=== PATIENT | female | born 1980 | race Caucasian/White ===

== ENCOUNTER 2018-06-09 15:09 | Observation (INO) ==
--- NOTE | 2018-06-09 17:38 | Internal Med History&Physical ---
Date of Encounter: 06/09/18 Time of Encounter: 17:31 Internal Medicine - H&P: HPI Chief complaint: chest pain Admitted From: Emergency Dept Plans for Post Hospital Care: Home History of present illness: Ms. Jung is a 38 year old female Patient with history of polycystic ovarian syndrome, GERD, endometriosis, smoking history, hypertension, obesity, and pseudi tumor cerebri Percent transfer from [facility] for evaluation of a chest pain and positive troponin. .Patient says yesterday she was feeling generalized weakness and right shoulder aches and today she developed chest pain describes as pressure going down to her left shoulder and arm and that she called EMS she was brought to the emergency room at [facility] [place] prior to arrival she was given for 4 aspirin and sublingual nitroglycerin chest pain subsided and is now resolved she says she also broke out in sweats profusely with shortness of breath and nausea and vomited evaluation at the outside hospital showed a troponin 0.06 therefore she was transferred for further evaluation. She has remained chest pain-free Past Med Surg Social Fam HX - Past Medical History Medical history: GERD, hypertension, other Additional medical history: Heart Palpitations / Chairi Malformation Psychiatric history: no psych history - Past Surgical History Surgical History: , cholecystectomy, other Additional surgical history: tubal - Social History Smoking Status: Current every day smoker Smokeless Tobacco Status: No Alcohol use: none Drug use: none - Family History Father Hx Family Cardiac Disorders: Yes (ablation) Internal Medicine - H&P: Meds Amoxicillin [Amoxil] 500 mg PO Q8HR #21 capsule 10/28/16 [Rx] Furosemide [Lasix] 20 mg PO DAILY PRN 10/28/16 [History] Nicotine Patch [Nicoderm] 21 mg TD DAILY #1 patch.td24 10/28/16 [Rx] Omeprazole [PriLOSEC] 40 mg PO HS 10/28/16 [History] Oxycodone HCl/Acetaminophen [Percocet 5-325 mg Tablet] 1 each PO Q4-6H PRN #40 tablet 10/28/16 [Rx] prednisoLONE [Prelone] 30 mg PO DAILY #40 mls 10/28/16 [Rx] Acetaminophen w/Cod 300-30 mg [Tylenol w/Codeine #3] 1 - 2 each PO Q6HR #20 tablet 11/03/16 [Rx] Magic Mouthwash [Magic Mouthwash BLM] 10 ml PO QID PRN #240 ml 11/03/16 [Rx] Oxycodone HCl/Acetaminophen [Percocet 10-325 mg Tablet] 1 each PO Q6HR #20 tablet 11/03/16 [Rx] PredniSONE [Deltasone] 40 mg PO DAILY #5 tablet 07/26/17 [Rx] Ibuprofen [Motrin] 800 mg PO Q6-8H PRN #30 tablet 10/17/17 [Rx] predniSONE [PredniSONE] 60 mg PO DAILY #15 tablet 11/06/17 [Rx] 3 Allergy/AdvReac Type Severity Reaction Status Date / Time ceftriaxone [From Rocephin] Allergy Itching Verified 11/03/16 01:14 hydrocodone [From Vicodin] Allergy Hives Verified 11/03/16 01:14 morphine Allergy Itching, Verified 11/03/16 01:14 facial swelling All Systems PM: A 10-system review of systems was performed and is negative for pertinent findings except as documented above in the HPI. - Constitutional Vitals: Temp Pulse Resp BP Pulse Ox 98.7 F 70 16 129/75 97 06/09/18 16:58 06/09/18 16:58 06/09/18 16:58 06/09/18 16:58 06/09/18 16:58 General appearance: Present: A&O X 3, obese Exam: done - Head Head exam: Present: atraumatic, normocephalic - Eye Eye exam: Present: PERRL, conjuntiva pink, sclera anicteric Pupils: Present: PERRL - Neck Neck exam general surgery: Present: supple, trachea midline. Absent: lymphadenopathy - Respiratory Respiratory exam: Present: CTAB. Absent: accessory muscle use, rales, rhonchi, wheezes - Cardiovascular Cardiovascular exam: Present: RRR, +S1, +S2. Absent: diastolic murmur, gallop, rubs, systolic murmur - GI/Abdominal GI/Abdominal exam: Present: normal bowel sounds, soft, no peritoneal signs. Absent: distended, tenderness - Extremities Exam Extremities exam: Present: warm, radial pulses palpable and symmetrical. Absent : calf tenderness, cyanotic, pedal edema - Neurological Exam Neurological exam: Present: CN II-XII intact, oriented X3, no focal deficits. Absent: pronater drift, facial droop, speech deficit - Skin Skin exam: Present: dry, intact - Assessment and plan (1) Chest pain Current Visit: Yes Status: Acute Assessment and plan: Patient gives atypical cardiac chest pain of 5 chest pain going down her left shoulder and arm socially with sweats shortness of breath, nausea chest pain is not resolved troponin is mildly elevated or consult cardiology and trend troponin and a recent echo which was normal LV function Qualifiers: Chest pain type: precordial pain Qualified Code(s): R07.2 - Precordial pain (2) Elevated troponin Current Visit: Yes Status: Acute Assessment and plan: With trend troponin and keep nothing by mouth after midnight for cardiology follow-up evaluation (3) GERD (gastroesophageal reflux disease) Current Visit: Yes Status: Chronic Assessment and plan: Continue home medication Qualifiers: Esophagitis presence: without esophagitis Qualified Code(s): K21.9 - Gastro -esophageal reflux disease without esophagitis (4) PCOS (polycystic ovarian syndrome) Current Visit: Yes Status: Chronic Assessment and plan: Continue home medication (5) Obesity Current Visit: Yes Status: Chronic Qualifiers: Obesity type: due to excess calories Obesity classification: adult class 1 (BMI 30 - 34.9) Serious obesity comorbidity presence: unspecified whether serious comorbidity present Body mass index: unspecified BMI Qualified Code( s): E66.09 - Other obesity due to excess calories (6) Smoking Current Visit: Yes Status: Chronic (7) HTN (hypertension) Current Visit: Yes Status: Chronic Assessment and plan: Patient is unclear whether she has hypertension or not but she takes he takes blood pressure medicine because of her pseudotumor cerebri Qualifiers: Hypertension type: essential hypertension Qualified Code(s): I10 - Essential (primary) hypertension - Time Spent With Patient Total time spent is greater than 50% in coordination of care (as documented) at patient's floor/unit and/or counseling patient:
[2018-06-09] MEDS ORDERED: Acetaminophen 325 MG TABLET PO PRN (17:43)
[2018-06-09] MEDS ORDERED: traMADol 50 MG TABLET PO PRN (17:43)
[2018-06-09] MEDS ORDERED: Naloxone 0.4 MG/ML INJ IVP PRN (17:43)
[2018-06-09] MEDS ORDERED: Magic Mouthwash 10 ML UD Cup PO PRN (17:47)
[2018-06-09] MEDS: 0.9 % Sodium Chloride 1,000 ML IVC SCH (21:57)
[2018-06-09] MEDS: *HR* OxyCODONE/APAP 10/325 TABLET PO SCH (22:05)
[2018-06-10 01:54] LABS: Hematocrit 35.9 % (35.3-44.9); Hemoglobin 12.3 g/dL (11.5-15.4); Mean Corpuscular HGB Conc 34.3 g/dL (31.6-35.5); Mean Corpuscular Hemoglobin 30.8 pg (28.0-33.3); Mean Platelet Volume 10.6 fL (9.4-12.4); Platelet Count 253 K/mcL (140-400); Red Blood Count 3.99 M/mcL (3.82-4.97); Red Cell Distribution Width 12.9 % (11.5-14.5)
[2018-06-10 02:14] LABS: Alanine Aminotransferase 15 Units/L (7-52); Albumin 3.4 g/dL (3.5-5.7); Albumin/Globulin Ratio 1.3 (1.1-2.2); Alkaline Phosphatase 47 Units/L (34-104); Aspartate Amino Transferase 11 Units/L (13-39); BUN/Creatinine Ratio 19 (6-26); Bilirubin,Total 0.2 mg/dL (0.3-1.0); Blood Urea Nitrogen 14 mg/dL (6-20); Calcium 8.3 mg/dL (8.6-10.3); Carbon Dioxide 21 mEq/L (23-29); Chloride 110 mEq/L (98-107); Cholesterol 163 mg/dL (< 200); Globulin 2.7 g/dL (2.4-3.5); Glucose 118 mg/dL (70-105); HDL Cholesterol 27 mg/dL (40-59); LDL Cholesterol,Calculated 103 mg/dL (0-99); Osmolality,Calculated 288 (280-300); Potassium 3.4 mEq/L (3.5-5.1); Sodium 138 mEq/L (136-145); Total Protein 6.1 g/dL (6.4-8.9); Triglycerides 163 mg/dL (< 150); eGFR For Non-African Americans > 60 (> 60)
[2018-06-10] MEDS: *HR* OxyCODONE/APAP 10/325 TABLET PO SCH ×2 (02:20→05:05)
--- NOTE | 2018-06-10 08:20 | Cardiology Consult Note ---
Date of Encounter: 06/10/18 Time of Encounter: 07:00 Assessment and Plan (1) Chest pain Current Visit: Yes Status: Acute Patient presents with chest pain, atypical features. Troponin 0.062 at [facility], now negative x3. No ischemic ECG changes noted. Significant RF for CAD including: HTN, HLD, obesity, and tobacco dependence. Echocardiogram pending. Recommend ischemic evaluation, will proceed with non exercise nuclear stress test today. Qualifiers: Chest pain type: precordial pain Qualified Code(s): R07.2 - Precordial pain (2) Smoking Current Visit: Yes Status: Chronic Tobacco cessation counseling provided. (3) HTN (hypertension) Current Visit: Yes Status: Chronic Currently controlled. Continue to monitor as inpatient. Qualifiers: Hypertension type: essential hypertension Qualified Code(s): I10 - Essential (primary) hypertension Discussion w patient/family: The assessment and plan as outlined above was discussed with the patient and/or family members who expressed understanding and agreement. All questions were answered. Thank you for involving us in the care of your patient. Please call with any questions. The patient will be discussed and reviewed with Dr. Fitch; changes to be made accordingly. History of Present Illness Consult date: 06/10/18 Requesting physician: Teo Motta Consult reason: Elevated troponin Chief complaint: Chest pain History of present illness: Ms. 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 Chest discomfort described as midsternal burning with radiation to left arm. Associated symptoms included shortness of breath, diaphoresis, nausea with vomiting. Reports symptoms resolved without intervention after 1 hour. EMS was called and took patient to [facility], initial troponin was 0.062 and was then transferred to [facility] for further evaluation. Upon arrival to ED, initial troponin was negative. No ischemic ECG changes were noted. She is chest pain free upon exam. Past Med Surg Social Fam HX - Past Medical History Attestation: Yes The following information was validated with the patient. Source: patient Medical history: GERD, hypertension, other Additional medical history: Heart Palpitations / Chairi Malformation Psychiatric history: no psych history - Past Surgical History Surgical History: , cholecystectomy, other Additional surgical history: tubal - Social History Smoking Status: Current every day smoker Packs per day: 1-2 Smokeless Tobacco Status: No Alcohol use: none Drug use: none - Family History Father Hx Family Cardiac Disorders: Yes (ablation) Medications and Allergies Furosemide [Lasix] 20 mg PO DAILY PRN 10/28/16 [History] Ibuprofen [Motrin] 800 mg PO Q6-8H PRN #30 tablet 10/17/17 [Rx] Candesartan Cilexetil [Atacand] 8 mg PO DAILY 06/10/18 [History] Rizatriptan Benzoate [Maxalt] 10 mg PO PRN PRN 06/10/18 [History] Temazepam [Restoril] 15 mg PO HS 06/10/18 [History] raNITIdine HCl [Zantac] 150 mg PO BID 06/10/18 [History] 3 Allergy/AdvReac Type Severity Reaction Status Date / Time ceftriaxone [From Rocephin] Allergy Itching Verified 11/03/16 01:14 hydrocodone [From Vicodin] Allergy Hives Verified 11/03/16 01:14 morphine Allergy Itching, Verified 11/03/16 01:14 facial swelling All Systems Review: The remainder of the systems were reviewed and are negative - Cardiovascular Cardiovascular: as per HPI Physical Examination Vital Signs, Last 4 Hours Temp Pulse Resp BP Pulse Ox 06/10/18 08:05 98.7 F 62 16 104/68 98 General: Conversant, No Apparent Distress HEENT: Atraumatic, Normocephaly, Mucus Membranes Moist Cardiac: Reg Rate and Rhythm, Normal S1 and S2 Lungs: Normal Breath Sounds Neuro: Alert and responsive Abdomen: Soft Skin: No rashes noted on visualized skin Musculoskeletal: No Chest Wall Tenderness Extremities: No Edema, Normal Pulses Results 06/10/18 01:40 06/10/18 01:40 Lab Results 06/09/18 06/10/18 06/10/18 18:24 01:40 01:40 WBC 10.9 Hgb 12.3 Hct 35.9 Plt Count 253 Sodium Potassium Chloride Carbon Dioxide BUN Creatinine Glucose Calcium Magnesium Total Bilirubin AST ALT Alkaline Phosphatase Troponin I 0.03 < 0.03 B-Natriuretic Peptide 06/10/18 06/10/18 06/10/18 01:40 01:40 06:37 WBC Hgb Hct Plt Count Sodium 138 Potassium 3.4 L Chloride 110 H Carbon Dioxide 21 L BUN 14 Creatinine 0.72 Glucose 118 H Calcium 8.3 L Magnesium 2.0 Total Bilirubin 0.2 L AST 11 L ALT 15 Alkaline Phosphatase 47 Troponin I < 0.03 B-Natriuretic Peptide 39 Active Medications Acetaminophen (Tylenol) 650 mg PO Q6HR PRN PRN Reason: Mild Pain/Fever Stop: 12/09/18 17:44 Atorvastatin Calcium (Lipitor) 20 mg PO HS [facility] Stop: 12/10/18 21:01 Sodium Chloride (0.9 % Sodium Chloride) 1,000 mls @ 75 mls/hr IVC .[id number] TIERA Stop: 06/10/18 20:24 Last Admin: 06/09/18 21:57 Dose: 75 mls/hr Multi-Ingredient Mouthwash/Gargle (Magic Mouthwash) 10 ml PO QID PRN PRN Reason: Pain Naloxone HCl (Narcan) 0.4 mg IVP Q2MIN PRN PRN Reason: SEE COMMENTS Stop: 12/09/18 17:44 Nicotine (Nicoderm) 21 mg TD DAILY TIERA PRN Reason: Protocol Stop: 12/10/18 09:01 Omeprazole (Prilosec) 40 mg PO HS [facility] Stop: 12/09/18 21:01 Last Admin: 06/09/18 22:05 Dose: Not Given Oxycodone/Acetaminophen (Percocet 10/325) 1 each PO Q6HR [facility] Stop: 12/09/18 18:01 Last Admin: 06/10/18 05:05 Dose: Not Given Tramadol HCl (Ultram) 50 mg PO Q6HR PRN PRN Reason: Moderate Pain Stop: 12/09/18 17:44 - Imaging and Cardiology Echo: report reviewed Holter: report reviewed - EKG Interpretation EKG results cardiology: personally reviewed Consult Discharge Plan - Plan Referrals: Conor Ramirez MD [Primary Care Provider] -
[2018-06-10] MEDS ORDERED: Nicotine 21 MG PATCH.TD24 TD SCH (09:00)
[2018-06-10] MEDS ORDERED: Rizatriptan Benzoate [Maxalt] 10 MG PO PRN (10:12)
[2018-06-10] MEDS ORDERED: Furosemide 20 MG TABLET PO PRN (10:12)
--- NOTE | 2018-06-10 10:19 | Internal Med Progress Note ---
Hospitalist Progress Note - Encounter Date of Encounter: 06/10/18 Time of Encounter: 10:17 - Subjective Interval History: Patient seen and examined at bedside today, no acute changes overnight. She presented with midsternal chest pain with radiation to the right and left shoulder. Pain described as discomfort/burning sensation. Additional symptoms include diaphoresis, nausea/vomiting, shortness of breath dizziness and fatigue. 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 Currently, she is having intermittent chest discomfort episodes radiating to the right neck without shortness of breath, diaphoresis, nausea/vomiting or fatigue. Given her presentation plan of care was discussed including today's stress test and echocardiogram. Patient verbalizes understanding denies any further questions at this time. - Exam Vitals: Temp Pulse Resp BP Pulse Ox 98.7 F 62 16 104/68 98 06/10/18 08:05 06/10/18 08:05 06/10/18 08:05 06/10/18 08:05 06/10/18 08:05 Exam: PHYSICAL EXAMINATION: GENERAL: The patient is a well-developed, obese female in no apparent distress. She is alert and oriented x3. HEENT: Head is normocephalic and atraumatic. Extraocular muscles are intact. Pupils are equal, round, and reactive to light and accommodation NECK: Supple. No carotid bruits. No lymphadenopathy or thyromegaly. LUNGS: Clear to auscultation. HEART: Regular rate and rhythm without murmur. ABDOMEN: Soft, nontender, and nondistended. Positive bowel sounds. No hepatosplenomegaly was noted. EXTREMITIES: Without any cyanosis, clubbing, rash, lesions or edema. NEUROLOGIC: No slurred speech or facial droop noted - Assessment and Plan (1) Chest pain Current Visit: Yes Status: Acute Assessment and Plan: Presents with midsternal chest pain with radiation to the right neck as well as atypical features Troponin had [facility] 0.062 now negative 3--EKG without any changes concerning for ischemia-no ST-T wave changes per my review Concerns for acute coronary syndrome as patient was reporting nausea/vomiting, diaphoresis, shortness of breath and fatigue Denies any prior history of CAD; risk factors include hypertension, hyperlipidemia, obesity, smoking history--denies any family history of early cardiac demise 06/10-clinically, patient appears to be stable however is reporting intermittent chest pain. Given her presentation and continued chest pain cardiology has been consulted. Thank you has always and appreciate recommendations. Recommendations are for ischemic evaluation including 2-day nonexercise nuclear stress and echocardiogram. Smoking--offered a nicotine patch, provided tobacco cessation counseling options however the patient declined HTN--well-controlled at this time, continue candesartan, continue to monitor and titrate as necessary GERD--continue H2 Obesity-discussed lifestyle modification, weight loss and dietary modifications Hyperlipidemia--discussed lifestyle modifications--continue Lipitor while inpatient--defer to cardiology regarding prescription for Lipitor at discharge (2) Tobacco abuse Current Visit: Yes Status: Acute (3) GERD (gastroesophageal reflux disease) Current Visit: Yes Status: Chronic (4) HTN (hypertension) Current Visit: Yes Status: Chronic (5) Obesity Current Visit: Yes Status: Chronic (6) PCOS (polycystic ovarian syndrome) Current Visit: Yes Status: Chronic (7) Hyperlipidemia Current Visit: Yes Status: Acute DVT Prophylaxis: Low risk--increase activity - Time Spent with Patient Total time spent is greater than 50% in coordination of care (as documented) at patient's floor/unit and/or counseling patient: less than 15 minutes Plan of Care Discussed with: patient Internal Medicine: Result - Labs CBC & Chem 7: 06/10/18 01:40 06/10/18 01:40 Labs: Short CBC 06/10/18 Range/Units 01:40 WBC 10.9 (4.3-11.1) K/mcL Hgb 12.3 (11.5-15.4) g/dL Hct 35.9 (35.3-44.9) % Plt Count 253 (140-400) K/mcL BMP 06/10/18 01:40 Sodium 138 Potassium 3.4 L Chloride 110 H Carbon Dioxide 21 L BUN 14 Creatinine 0.72 Glucose 118 H Calcium 8.3 L Cardiac Enzymes 06/09/18 06/10/18 06/10/18 Range/Units 18:24 01:40 06:37 Troponin I 0.03 < 0.03 < 0.03 (< 0.04) ng/mL Liver Function 06/10/18 Range/Units 01:40 Total Bilirubin 0.2 L (0.3-1.0) mg/dL AST 11 L (13-39) Units/L ALT 15 (7-52) Units/L Alkaline Phosphatase 47 (34-104) Units/L Albumin 3.4 L (3.5-5.7) g/dL Consult Discharge Plan - Plan Referrals: Conor Ramirez MD [Primary Care Provider] - (1) Chest pain Qualifiers: Chest pain type: precordial pain Qualified Code(s): R07.2 - Precordial pain (3) GERD (gastroesophageal reflux disease) Qualifiers: Esophagitis presence: without esophagitis Qualified Code(s): K21.9 - Gastro- esophageal reflux disease without esophagitis (4) HTN (hypertension) Qualifiers: Hypertension type: essential hypertension Qualified Code(s): I10 - Essential (primary) hypertension (5) Obesity Qualifiers: Obesity type: due to excess calories Obesity classification: adult class 1 ( BMI 30 - 34.9) Serious obesity comorbidity presence: unspecified whether serious comorbidity present Body mass index: unspecified BMI Qualified Code(s) : E66.09 - Other obesity due to excess calories (7) Hyperlipidemia Qualifiers: Hyperlipidemia type: unspecified Qualified Code(s): E78.5 - Hyperlipidemia, unspecified
[2018-06-10] MEDS ORDERED: Regadenoson 0.4 MG/5 ML SYRINGE IVP ONE (10:24)
[2018-06-10] MEDS ORDERED: *HR* OxyCODONE/APAP 10/325 TABLET PO PRN (11:20)
[2018-06-10] MEDS ORDERED: Nicotine 2 MG GUM BC PRN (16:32)
--- NOTE | 2018-06-10 16:41 | Electrocardiograph Report ---
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
[2018-06-10] MEDS: 0.9 % Sodium Chloride 1,000 ML IVC SCH (16:43)
[2018-06-10] MEDS ORDERED: Perflutren Lipid Microsphere 1.3 ML in 0.9 % Sodium Chloride 8.7 ML IVP ONE (21:40)
[2018-06-10] MEDS: Famotidine 20 MG TABLET PO SCH (22:29)
[2018-06-11 06:05] LABS: BUN/Creatinine Ratio 21 (6-26); Blood Urea Nitrogen 13 mg/dL (6-20); Calcium 8.1 mg/dL (8.6-10.3); Carbon Dioxide 22 mEq/L (23-29); Chloride 108 mEq/L (98-107); Glucose 111 mg/dL (70-105); Osmolality,Calculated 283 (280-300); Potassium 3.5 mEq/L (3.5-5.1); Sodium 136 mEq/L (136-145); eGFR For Non-African Americans > 60 (> 60)
[2018-06-11 07:24] VITALS: BP 120/69
[2018-06-11] MEDS: Famotidine 20 MG TABLET PO SCH (08:25)
--- NOTE | 2018-06-11 11:35 | Cardiology Progress Note ---
Date of Encounter: 06/11/18 Time of Encounter: 11:00 Assessment and Plan (1) Chest pain Current Visit: Yes Status: Acute Per cardiology: -Patient presents with chest pain, atypical features. -Troponin 0.062 at [facility], now negative x3. -No ischemic ECG changes noted. -Significant RF for CAD including: HTN, HLD, obesity, and tobacco dependence. -Echocardiogram with LVEF preserved, no segmental wall motion abnormalities noted. -Stress test today with mild intensity, small sized inferior perfusion defect. Ischemia cannot be ruled out. -ON statin. -Discussed stress test results with patient. At this time, patient prefers medical management. Educated to return to ER for recurrence of chest pain. -Recommend ASA and low dose beta dimitri. -Cardiology will sign off and will follow in outpatient setting. Follow up set. Qualifiers: Chest pain type: precordial pain Qualified Code(s): R07.2 - Precordial pain (2) Smoking Current Visit: Yes Status: Chronic Per cardiology: -Tobacco cessation counseling provided. (3) HTN (hypertension) Current Visit: Yes Status: Chronic Per cardiology: -Currently controlled. -Continue to monitor as outpatient. Qualifiers: Hypertension type: essential hypertension Qualified Code(s): I10 - Essential (primary) hypertension Discussion w patient/family: The assessment and plan as outlined above was discussed with the patient who expressed understanding and agreement. All questions were answered. Thank you for involving us in the care of your patient. Please call with any questions. Discussed and reviewed with . Subjective Principal diagnosis: chest pain Interval history: Patient denies recurrence of chest pain. States she wants to go home. Objective Vital Signs Temperature 98.7 F 06/09/18 16:58 Pulse Rate 70 06/09/18 16:58 Respiratory Rate 16 06/09/18 16:58 Blood Pressure 129/75 06/09/18 16:58 O2 Sat by Pulse Oximetry 97 06/09/18 16:58 Temperature 99.1 F 06/11/18 07:22 Pulse Rate 78 06/11/18 07:22 Respiratory Rate 18 06/11/18 07:22 Blood Pressure 120/69 06/11/18 07:22 O2 Sat by Pulse Oximetry 97 06/11/18 07:22 General: Conversant, No Apparent Distress HEENT: Atraumatic, Normocephaly, Mucus Membranes Moist Neck: No JVD, Normal carotid pulses Cardiac: Reg Rate and Rhythm, Normal S1 and S2, No Murmur Lungs: Normal Breath Sounds, No Wheeze, Rales, Rhonchi Neuro: Alert and responsive, No focal deficits noted Abdomen: Soft, Non-Tender Skin: No rashes noted on visualized skin Musculoskeletal: No Chest Wall Tenderness Extremities: No Clubbing, No Cyanosis, No Edema, Normal Pulses Results 06/10/18 01:40 06/11/18 05:24 Lab Results Impressions Echocardiogram 06/11/18 09:40 Impressions: LVEF 60-65%. Normal LV chamber size, wall thickness and function. Normal left ventricular diastolic function. Normal right ventricular structure and function. Unable to estimate RVSP due to lack of TR jet. No significant valvular dysfunction. Left Ventricular Wall Motion: Rest Echo Findings All wall segments showed normal motion. Findings: Study Quality * Technically sub-optimal due to body habitus. ECG Findings * Normal sinus rhythm. Left Ventricle * LVEF 60-65%. * Normal LV chamber size, wall thickness and function. * Normal left ventricular diastolic function. Right Ventricle * Normal right ventricular structure and function. Left Atrium * Mildly dilated left atrium. Right Atrium * Normal right atrial size. Aortic Valve * Aortic valve not well visualized. * No aortic regurgitation. * No aortic stenosis. Mitral Valve * Normal mitral valve structure and function. * No mitral regurgitation. * No mitral stenosis. Tricuspid Valve * Normal tricuspid valve structure and function. * No tricuspid regurgitation. * Unable to estimate RVSP due to lack of TR jet. Pulmonic Valve * Pulmonic valve is not well visualized. * No pulmonic regurgitation. Aorta * Normally sized aortic root. Pericardium * The pericardium appears normal. IVC * Normal IVC dimensions and inspiratory collapse. Pulmonary Artery * Normal visualized portions of the main pulmonary artery. Active Medications Acetaminophen (Tylenol) 650 mg PO Q6HR PRN PRN Reason: Mild Pain/Fever Stop: 12/09/18 17:44 Atorvastatin Calcium (Lipitor) 20 mg PO HS [facility] Stop: 12/10/18 21:01 Last Admin: 06/10/18 22:29 Dose: 20 mg Famotidine (Pepcid) 20 mg PO BID [facility] Stop: 12/10/18 21:01 Last Admin: 06/11/18 08:25 Dose: Not Given Furosemide (Lasix) 20 mg PO DAILY PRN PRN Reason: Edema Stop: 12/10/18 10:13 Losartan Potassium (Cozaar) 25 mg PO DAILY [facility] Stop: 12/11/18 09:01 Last Admin: 06/11/18 08:25 Dose: Not Given Multi-Ingredient Mouthwash/Gargle (Magic Mouthwash) 10 ml PO QID PRN PRN Reason: Pain Naloxone HCl (Narcan) 0.4 mg IVP Q2MIN PRN PRN Reason: SEE COMMENTS Stop: 12/09/18 17:44 Nicotine Polacrilex (Nicorette Gum) 2 mg BC Q2H PRN PRN Reason: Nicotine Cravings Stop: 12/10/18 16:33 Last Admin: 06/10/18 17:57 Dose: 2 mg Omeprazole (Prilosec) 40 mg PO HS [facility] Stop: 12/09/18 21:01 Last Admin: 06/10/18 22:29 Dose: 40 mg Oxycodone/Acetaminophen (Percocet 10/325) 1 each PO Q6HR PRN PRN Reason: Severe Pain Stop: 12/09/18 18:01 Pharmacy Profile Note (Patient Taking Own Medication) 1 each PO ONCE PRN PRN Reason: Migraine Headache Stop: 12/10/18 10:13 Temazepam (Restoril) 15 mg PO HS [facility]ERA PRN Reason: Protocol Stop: 12/11/18 21:01 Tramadol HCl (Ultram) 50 mg PO Q6HR PRN PRN Reason: Moderate Pain Stop: 12/09/18 17:44 Laboratory Tests 06/09/18 06/10/18 06/10/18 18:24 01:40 01:40 Hgb 12.3 Creatinine Troponin I 0.03 < 0.03 LDL Cholesterol, Calc 06/10/18 06/10/18 06/11/18 01:40 06:37 05:24 Hgb Creatinine 0.63 Troponin I < 0.03 LDL Cholesterol, Calc 103 H - Imaging and Cardiology Chest Xray: report reviewed Stress Test: report reviewed Echo: report reviewed - EKG Interpretation EKG results cardiology: other (Telemetry reviewed with average HR previous 12 hours noted to be 69, SR. PVCs and PACs noted.) Consult Discharge Plan - Plan Referrals: Conor Ramirez MD [Primary Care Provider] - 06/18/18 11:00 am
--- NOTE | 2018-06-11 12:18 | Discharge Summary ---
- NOTES TO OUTPATIENT PROVIDER Notes to Outpatient Provider: standard outpatient follow-up Orders not resulted at time of discharge: Pending orders 06/10/18 09:38 NM vaishali perf SPECT multi [NM] Routine Date of Encounter: 06/11/18 Time of Encounter: 12:15 - Discharge Diagnosis (1) Chest pain Priority: Primary Status: Acute Assessment and Plan: Presents with midsternal chest pain with radiation to the right neck as well as atypical features Troponin had Neetu 0.062 now negative 3--EKG without any changes concerning for ischemia-no ST-T wave changes per my review Concerns for acute coronary syndrome as patient was reporting nausea/vomiting, diaphoresis, shortness of breath and fatigue Denies any prior history of CAD; risk factors include hypertension, hyperlipidemia, obesity, smoking history--denies any family history of early cardiac demise 06/11-clinically, patient appears to be stable chest pain subsided. 2-day stress negative for ischemia, small size inferior reversible perfusion defect found, ischemia cannot be ruled out. Findings discussed with patient per cardiology, at this time patient prefers medical management. Educated that she should return to the ED should chest pain recur. We discharged on low-dose ASA and low -dose beta dimitri as well as statin. She has been provided education and benefits of smoking cessation and diet and lifestyle modifications for obesity hyperlipidemia. Patient verbalizes understanding denies any further questions at this time Qualifiers: Chest pain type: precordial pain Qualified Code(s): R07.2 - Precordial pain (2) Tobacco abuse Priority: Secondary Status: Acute (3) GERD (gastroesophageal reflux disease) Priority: Secondary Status: Chronic Qualifiers: Esophagitis presence: without esophagitis Qualified Code(s): K21.9 - Gastro -esophageal reflux disease without esophagitis (4) HTN (hypertension) Priority: Secondary Status: Chronic Qualifiers: Hypertension type: essential hypertension Qualified Code(s): I10 - Essential (primary) hypertension (5) Obesity Priority: Secondary Status: Chronic Qualifiers: Obesity type: due to excess calories Obesity classification: adult class 1 (BMI 30 - 34.9) Serious obesity comorbidity presence: unspecified whether serious comorbidity present Body mass index: unspecified BMI Qualified Code( s): E66.09 - Other obesity due to excess calories (6) PCOS (polycystic ovarian syndrome) Priority: Secondary Status: Chronic (7) Hyperlipidemia Priority: Secondary Status: Acute Qualifiers: Hyperlipidemia type: unspecified Qualified Code(s): E78.5 - Hyperlipidemia , unspecified Hospital course: Ms. Jung is a 38 year old female was admitted for chest pain rule out. She presented with atypical chest pain features however, does have significant risk factors for CAD including HTN, HLD, obesity, tobacco dependence, sedentary lifestyle. Today she chest pain-free. During the stay she underwent a 2-day stress which was found to be negative for ischemia, there was a small size inferior reversible perfusion defect and ischemia cannot be ruled out. These findings were discussed with patient per cardiology, at this time she prefers medical management. She was educated that she should return to the ED should chest pain recur. She is being discharged on low-dose ASA and low-dose beta dimitri as well as a statin. She has been provided education and benefits of smoking cessation and diet and lifestyle modifications for obesity and hyperlipidemia. Patient verbalizes understanding denies any further questions at this time Discharge discussed with: patient, nurse, consultant teacher - Time Spent with Patient Total time spent providing and/or coordinating discharge services: Less than 30 minutes - Discharge Medications Prescriptions: Aspirin Enteric Coated [Aspirin EC] 81 mg PO DAILY 30 Days #30 tablet. Atorvastatin [Lipitor] 20 mg PO HS 30 Days #60 tablet Metoprolol XL (24 HR) Succ [Toprol Xl] 12.5 mg PO DAILY 30 Days #15 tab.er.24h Home Medications: Candesartan Cilexetil [Atacand] 8 mg PO DAILY 06/10/18 [History] Rizatriptan Benzoate [Maxalt] 10 mg PO PRN PRN 06/10/18 [History] Temazepam [Restoril] 15 mg PO HS 06/10/18 [History] raNITIdine HCl [Zantac] 150 mg PO BID 06/10/18 [History] Aspirin Enteric Coated [Aspirin EC] 81 mg PO DAILY 30 Days #30 tablet. [Rx] Atorvastatin [Lipitor] 20 mg PO HS 30 Days #60 tablet 06/11/18 [Rx] Metoprolol XL (24 HR) Succ [Toprol Xl] 12.5 mg PO DAILY 30 Days #15 tab.er.24h 06/11/18 [Rx] Allergies/Adverse Reactions: 3 Allergy/AdvReac Type Severity Reaction Status Date / Time ceftriaxone [From Rocephin] Allergy Itching Verified 06/10/18 10:19 hydrocodone [From Vicodin] Allergy Hives Verified 06/10/18 10:19 morphine Allergy Itching, Verified 06/10/18 10:19 facial swelling Date of admission: 06/09/18 16:31 Primary care physician: Conor Ramirez MD Consults: 06/09/18 17:46 Consult to Physician [CONS] Routine Consulting Provider: Zahraa Mcclain Reason for Consult: chest pain, positive troponin Time Notified: 17:47 Call Completed: No 06/11/18 11:10 Consult to Cardiology [CONS] Routine Comment: Consulting Provider: Cardiology Mabel Reason for Consult: Admitted for chest pain rule out, stress test reveals mild reversible perfusion defect Time Notified: 11:10 Call Completed: Yes Discharging clinician: Bran Pena Anticipated date of discharge: 06/11/18 - Constitutional Vitals: Temp Pulse Resp BP Pulse Ox 99.1 F 78 18 120/69 97 06/11/18 07:22 06/11/18 07:22 06/11/18 07:22 06/11/18 07:22 06/11/18 07:22 General appearance: Present: A&O X 3, obese Exam: PHYSICAL EXAMINATION: GENERAL: The patient is a well-developed, obese female in no apparent distress. She is alert and oriented x3. HEENT: Head is normocephalic and atraumatic. Extraocular muscles are intact. Pupils are equal, round, and reactive to light and accommodation NECK: Supple. No carotid bruits. No lymphadenopathy or thyromegaly. LUNGS: Clear to auscultation. HEART: RRR, S1, S2 without murmurs rubs or gallops. ABDOMEN: Soft, nontender, and nondistended. Positive bowel sounds. No hepatosplenomegaly was noted. EXTREMITIES: Without any cyanosis, clubbing, rash, lesions or edema. NEUROLOGIC: No slurred speech or facial droop noted - Patient Status Disposition: Home, Self-Care Condition: Good Functional capacity at discharge: independent ambulation Overall status at discharge: patient is back to baseline - Discharge Instructions Instructions: Chest Pain (DC), Chronic Hypertension (DC) Follow Up With: Conor Ramirez MD [Primary Care Provider] - 06/18/18 11:00 am Samira Sky, FLUID DESIGNER [Advanced Practice Nurse] - (Cardiology will contact you to set up follow up appointment with them. if no call is recieved, please contact office. ) Forms: Inpatient Work/School Release Additional Instructions: Follow-up appointments: If there is not an appointment listed below, please call your physician and schedule a follow-up appointment. If you have congestive heart failure and your symptoms return, make an appointment with your physician. Medication List: Carry an up to date list of medications you are taking at all time. We have given you an updated medication list including any new medications that you have been prescribed. Please provide that list to your primary provider Symptoms: If your condition changes or you experience any of the following symptoms, notify your physician immediately: Unusual or worsening pain, fever, persistent nausea and vomiting, bleeding, increase in swelling (especially in your legs), sudden weight gain, extreme dizziness, chest pain, increased drainage or redness from a wound or incision. Go to the emergency department if you experience a problem with breathing. Weights: If you have a history of swelling or shortness of breath, weigh yourself daily and notify your physician if you have a weight gain of two or more pounds in one day or 5 or more pounds in a week. If you experience any of the warning signs for stroke: Sudden numbness or weakness of the face, arm or leg; especially on one side of the body, sudden confusion, trouble speaking or understanding, sudden trouble seeing in one or both eyes, sudden trouble walking, dizziness, loss of balance or coordination, sudden sever headache with no cause; Call 911 or go to the emergency room. Stroke is a medical emergency. Some risk factors for stroke: Age, cigarette smoking, diabetes, excessive alcohol consumption, family history , high blood pressure, overweight, physical inactivity, prior stroke, heart attack, diagnosis of carotid artery stenosis or other artery disease. If you smoke, STOP: Smoking or tobacco use significantly increases your risk of heart and lung disease. Your chance of disease greatly increases if you continue to smoke. For more information, call the [place] tobacco quit line for smoking cessation QUIT-NOW ( ) - Diet and Activity Activity: increase activity as tolerated, resume usual activities as tolerated Diet: diabetic diet, low fat, low cholesterol, low salt diet
[2018-06-11] MEDS ORDERED: Temazepam 15 MG CAPSULE PO SCH (21:00)
[2018-06-12] MEDS ORDERED: Metoprolol XL (24 HR) Succ 25 MG TAB.ER.24H PO SCH (09:00)
[2018-06-12] MEDS ORDERED: Aspirin Enteric Coated 81 MG Tablet PO SCH (09:00)
== END 2018-06-11 13:03 | disposition home or self-care (01) ==
LOC: 3BNU
PROVIDERS: ADMIT Internal Medicine; ATTEND Internal Medicine